=== PATIENT | female | born 1990 | race Caucasian/White ===

== ENCOUNTER 2017-03-14 23:40 | Emergency (ER) | payer SELFPAY ==
[~2017-03-14] VITALS: Ht 160 cm; Wt 57.0 kg
[~2017-03-14 23:40] MED LIST: BUSP5 PO; IBUP800T23 PO; SULF-154 PO; VIST50CA PO
[2017-03-14 23:42] VITALS: BP 177/80; PULSE 117; RESP 18; TEMP 100.3; O2SAT 96
[2017-03-15] MEDS ORDERED: SODIUM CHLOR 0.9% 1000 ML INJ 1,000 ML IV SCH (00:29)
[2017-03-15] MEDS ORDERED: ONDANSETRON HCL 4 MG/2 ML VIAL IVP ONE (00:30)
[2017-03-15] MEDS ORDERED: SODIUM CHLORIDE 0.9% FLUSH 10 ML FLUSH IV FLUSH PRN (00:30)
[2017-03-15 00:52] LABS: AUTOMATED NEUTROPHIL # 3.7 TH/MM3 (1.8-7.7); BASOPHIL % 0.3 % (0.0-2.0); EOSINOPHIL % 0.2 % (0.0-4.0); HEMATOCRIT 39.5 % (35.0-46.0); HEMOGLOBIN 13.5 GM/DL (11.6-15.3); LYMPHOCYTE # 1.3 TH/MM3 (1.0-4.8); MEAN CORPUSCULAR HEMOGLOBIN 29.8 PG (27.0-34.0); MEAN CORPUSCULAR HGB CONC 34.2 % (32.0-36.0); MONO % 8.5 % (0.0-8.0); MONOCYTE # 0.5 TH/MM3 (0-0.9); PLATELET COUNT 126 TH/MM3 (150-450); RED BLOOD COUNT 4.54 MIL/MM3 (4.00-5.30); RED CELL DISTRIBUTION WIDTH 14.3 % (11.6-17.2); WHITE BLOOD COUNT 5.5 TH/MM3 (4.0-11.0)
[2017-03-15 01:05] LABS: ALBUMIN 3.8 GM/DL (3.4-5.0); ALT (GPT) 15 U/L (10-53); AST (GOT) 20 U/L (15-37); BICARBONATE 27.1 MEQ/L (21.0-32.0); BLOOD UREA NITROGEN 9 MG/DL (7-18); CALCIUM 8.6 MG/DL (8.5-10.1); CHLORIDE 100 MEQ/L (98-107); CREATININE 0.68 MG/DL (0.50-1.00); GLOMERULAR FILTRATION RATE 105 ML/MIN (>89); GLUCOSE,RANDOM 101 MG/DL (74-106); LIPASE 75 U/L (73-393); SODIUM (NA) 135 MEQ/L (136-145)
[2017-03-15 01:08] LABS: ALKALINE PHOSPHATASE 97 U/L (45-117); TOTAL BILIRUBIN ADULT 0.4 MG/DL (0.2-1.0); TOTAL PROTEIN 8.2 GM/DL (6.4-8.2)
[2017-03-15 01:29] LABS: BACTERIA, URINE OCC /hpf; BILIRUBIN, URINE NEG (NEG); BLOOD, URINE MOD (NEG); GLUCOSE,URINE NEG (NEG); KETONE, URINE TRACE mg/dL (NEG); MUCUS URINE MANY /lpf (OCC); NITRITE,URINE NEG (NEG); SQUAMOUS EPITHELIAL CELL URINE 9 /hpf (0-5); URINE COLOR YELLOW (YELLW/STRAW); URINE LEUKOCYTE ESTERASE LARGE (NEG)
[2017-03-15] MEDS ORDERED: RESP: ALBUTEROL 2.5 MG/IPRATROPIUM 0.5 MG NEB (SCH) INH ONE (01:30)
--- NOTE | 2017-03-15 01:55 | RADRPT ---
EXAM DATE/TIME: 03/15/2017 01:35 [place] COMPARISON: No previous studies available for comparison. INDICATIONS : Cough with nausea and vomiting x 3 days MEDICAL HISTORY : Asthma SURGICAL HISTORY : Appendectomy. section. ENCOUNTER: Initial ACUITY: 3 days PAIN SCORE: 7/10 LOCATION: Bilateral chest FINDINGS: A single view of the chest demonstrates the lungs to be symmetrically aerated without evidence of mas s, infiltrate or effusion. The cardiomediastinal contours are unremarkable. Osseous structures are intact. CONCLUSION: No acute disease. Steven Cantu MD on March 15, 2017 at 1:51 Board Certified Radiologist. This report was verified electronically.
[2017-03-15] MEDS ORDERED: BACT800T5 PO (02:01)
[2017-03-15] MEDS ORDERED: ALBUAER3 INH (02:01)
[2017-03-15] MEDS ORDERED: ZOFR4TAB3 SL (02:01)
--- NOTE | 2017-03-15 02:01 | PD ---
HPI Chief Complaint: Cold / Flu Symptoms Time Seen by Provider: 01:17 Travel History International Travel<30 days: No Contact w/Intl Traveler<30days: No Traveled to known affect area: No History of Present Illness HPI 26-year-old female patient presents to the ER today for several days of cough, cold symptoms, nausea, fevers and chills, vomiting, and not feeling well. She states that both her daughter and mother has had similar symptoms as well although they have not been evaluated. Modifying Factors: None Associated Signs & Symptoms: Cough, cold symptoms, nausea, fevers, chills, vomiting Risk Factors: Sick contacts PFSH Past Medical History Hx Anticoagulant Therapy: No Asthma: Yes Anxiety: Yes Cardiovascular Problems: No Chemotherapy: No Cerebrovascular Accident: No Diabetes: No Diminished Hearing: No Respiratory: Yes Immunizations Current: Yes Pneumonia: Yes Tetanus Vaccination: > 5 Years Influenza Vaccination: No ?: Not LMP: 03/15/17 Past Surgical History Appendectomy: Yes Section: Yes (X 1) Hysterectomy: No Oral Surgery: Yes Social History Alcohol Use: No Tobacco Use: Yes (02/18 ppd) Substance Use: No Allergies-Medications (Allergen,Severity, Reaction): Coded Allergies: penicillin G (Unverified Allergy, Severe, 03/15/17) ciprofloxacin (Unverified Allergy, Unknown, UNKNOWN, 03/15/17) *MDRO Multi-Drug Resistant Organism (Verified Adverse Reaction, Unknown, ) MRSA finger wound 11/2014 Reported Meds & Prescriptions Reported Meds & Active Scripts Active No Active Prescriptions or Reported Medications Review of Systems Except as stated in HPI: all other systems reviewed are Neg Physical Exam Narrative GENERAL: Well-developed young white female patient currently in mild distress. Awake and oriented 3. SKIN: Focused skin assessment warm/dry. HEAD: Atraumatic. Normocephalic. EYES: Pupils equal and round. No scleral icterus. No injection or drainage. ENT: No nasal bleeding or discharge. Mucous membranes pink and moist. Mild pharyngeal erythema without tonsillar exudates. NECK: Trachea midline. No JVD. Supple. CARDIOVASCULAR: Regular rate and rhythm. No murmur appreciated. RESPIRATORY: No accessory muscle use. Mild intermittent wheezing. Breath sounds equal bilaterally. GASTROINTESTINAL: Abdomen soft, non-tender, nondistended. Hepatic and splenic margins not palpable. MUSCULOSKELETAL: No obvious deformities. No clubbing. No cyanosis. No edema. NEUROLOGICAL: Awake and alert. No obvious cranial nerve deficits. Motor grossly within normal limits. Normal speech. PSYCHIATRIC: Appropriate mood and affect; insight and judgment normal. Data Data Last Documented VS Vital Signs Date Time Temp Pulse Resp B/P (MAP) Pulse Ox O2 Delivery O2 Flow Rate FiO2 03/14/17 23:42 100.3 117 18 177/80 (112) 96 Room Air Orders Orders Complete Blood Count With Diff (03/15/17 00:29) Comprehensive Metabolic Panel (03/15/17 00:29) Lipase (03/15/17:29) Urinalysis - C+S If Indicated (03/15/17:29) Iv Access Insert/Monitor (03/15/17:29) Ecg Monitoring (03/15/17:) Oximetry (03/15/17:29) Ondansetron Inj (Zofran Inj) (03/15/17 00:30) Sodium Chlor 0.9% 1000 Ml Inj (Ns 1000 M (03/15/17 00:29) Sodium Chloride 0.9% Flush (Ns Flush) (03/15/17 00:30) Ed Urine Pregnancytest Poc (03/15/17 00:29) Influenzae A/B Antigen (03/15/17 00:29) Chest, Single Ap (03/15/17 01:17) Albuterol-Ipratropium Neb (Duoneb Neb) (03/15/17 01:30) Urine Culture (03/15/17 01:15) Labs Laboratory Tests Test 03/15/17 00:41 03/15/17 01:15 White Blood Count 5.5 TH/MM3 Red Blood Count 4.54 MIL/MM3 Hemoglobin 13.5 GM/DL Hematocrit 39.5 % Mean Corpuscular Volume 87.0 FL Mean Corpuscular Hemoglobin 29.8 PG Mean Corpuscular Hemoglobin Concent 34.2 % Red Cell Distribution Width 14.3 % Platelet Count 126 TH/MM3 Mean Platelet Volume 8.0 FL Neutrophils (%) (Auto) 67.0 % Lymphocytes (%) (Auto) 24.0 % Monocytes (%) (Auto) 8.5 % Eosinophils (%) (Auto) 0.2 % Basophils (%) (Auto) 0.3 % Neutrophils # (Auto) 3.7 TH/MM3 Lymphocytes # (Auto) 1.3 TH/MM3 Monocytes # (Auto) 0.5 TH/MM3 Eosinophils # (Auto) 0.0 TH/MM3 Basophils # (Auto) 0.0 TH/MM3 CBC Comment DIFF FINAL Differential Comment Blood Urea Nitrogen 9 MG/DL Creatinine 0.68 MG/DL Random Glucose 101 MG/DL Total Protein 8.2 GM/DL Albumin 3.8 GM/DL Calcium Level 8.6 MG/DL Alkaline Phosphatase 97 U/L Aspartate Amino Transf (AST/SGOT) 20 U/L Alanine Aminotransferase (ALT/SGPT) 15 U/L Total Bilirubin 0.4 MG/DL Sodium Level 135 MEQ/L Potassium Level 3.3 MEQ/L Chloride Level 100 MEQ/L Carbon Dioxide Level 27.1 MEQ/L Anion Gap 8 MEQ/L Estimat Glomerular Filtration Rate 105 ML/MIN Lipase 75 U/L Urine Color YELLOW Urine Turbidity HAZY Urine pH 6.0 Urine Specific [place] 1.032 Urine Protein 30 mg/dL Urine Glucose (UA) NEG mg/dL Urine Ketones TRACE mg/dL Urine Occult Blood MOD Urine Nitrite NEG Urine Bilirubin NEG Urine Urobilinogen 4.0 MG/DL Urine Leukocyte Esterase LARGE Urine RBC 7 /hpf Urine WBC 15 /hpf Urine Squamous Epithelial Cells 9 /hpf Urine Bacteria OCC /hpf Urine Mucus MANY /lpf Microscopic Urinalysis Comment CULTURE INDICATED MDM Medical Decision Making Medical Screen Exam Complete: Yes Emergency Medical Condition: Yes Medical Record Reviewed: Yes Differential Diagnosis Viral syndrome versus gastroenteritis versus dehydration versus metabolic issues versus versus pneumonia Narrative Course Patient is wheezing mildly and albuterol was given in the ER. IV fluids and Zofran was given in the ER. Vital signs are stable. Influenza testing is negative. Chest x-ray did not show any signs of acute pulmonary processes. UA does show UTI. Abdomen is fairly benign and I do not suspect an acute intra- abdominal process. At this point, my plan would be to treat her symptomatically and also will treat her with antibiotics for UTI. Follow-up with primary care physician. Return for worsening symptoms as needed. The plan was discussed with her and she states understanding. Diagnosis Primary Impression: Asthma Additional Impressions: UTI (urinary tract infection) Viral syndrome Med/Other Pt SpecificInfo: Prescription(s) given Scripts Ondansetron Odt (Zofran Odt) 4 Mg Tab 4 MG SL Q6HR Y for Nausea/Vomiting, #5 TAB 0 Refills Prov: Kareem Torres MD 03/15/17 Albuterol 8.5 GM Inh (Proair Hfa 8.5 GM Inh) 90 Mcg/Act Aer 2 PUFF INH Q4-6H Y for SHORTNESS OF BREATH, #1 INHALER 0 Refills 108 mcg/actuation Prov: Kareem Torres MD 03/15/17 Sulfamethoxazole-Trimethoprim (Bactrim DS) 800-160 Mg Tab 1 TAB PO BID for Infection, #14 TAB 0 Refills Prov: Kareem Torres MD 03/15/17 Disposition: 01 DISCHARGE HOME Condition: Stable Kareem Torres MD Mar 15, 2017 02:01
[2017-03-15 02:28] VITALS: BP 106/60; PULSE 104; RESP 20; TEMP 99; O2SAT 98
== END 2017-03-15 02:36 | disposition home or self-care (01) ==
LOC: NEPE 23:40
DX: J45.909 Unspecified asthma, uncomplicated (principal); N39.0 Urinary tract infection, site not specified; B34.9 Viral infection, unspecified; F17.200 Nicotine dependence, unspecified, uncomplicated
CPT/HCPCS: 71045; 80053; 81001; 83690; 84703; 85025; 87086; 87804; 94664; 96361; 96374; 99284; J2405; J7030

== ENCOUNTER 2017-07-28 11:24 | Emergency (ER) | payer OTHER ==
[~2017-07-28] VITALS: Ht 167.6 cm; Wt 50.0 kg
[2017-07-28] VITALS (9 sets, daily range): BP systolic 109–190; BP diastolic 62–121; PULSE 77–107; RESP 16–20; TEMP 98.2–98.6; O2SAT 96–100
[~2017-07-28 11:24] MED LIST changes: +ALBUAER3 INH; +BACT800T5 PO; -BUSP5 PO; -IBUP800T23 PO; -SULF-154 PO; -VIST50CA PO; +ZOFR4TAB3 SL
[2017-07-28] MEDS ORDERED: cloNIDine HCL 0.1 MG TAB PO ONE (12:15)
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
[2017-07-28 12:45] LABS: AUTOMATED NEUTROPHIL # 4.4 TH/MM3 (1.8-7.7); BASOPHIL % 0.4 % (0.0-2.0); EOSINOPHIL # 0.1 TH/MM3 (0-0.4); EOSINOPHIL % 0.7 % (0.0-4.0); HEMATOCRIT 34.9 % (35.0-46.0); HEMOGLOBIN 11.5 GM/DL (11.6-15.3); LYMPH % 29.2 % (9.0-44.0); LYMPHOCYTE # 2.1 TH/MM3 (1.0-4.8); MEAN CELL VOLUME 88.1 FL (80.0-100.0); MEAN CORPUSCULAR HGB CONC 32.9 % (32.0-36.0); MEAN PLATELET VOLUME 7.9 FL (7.0-11.0); MONO % 7.6 % (0.0-8.0); MONOCYTE # 0.5 TH/MM3 (0-0.9); NEUT % 62.1 % (16.0-70.0); PLATELET COUNT 190 TH/MM3 (150-450); RED BLOOD COUNT 3.96 MIL/MM3 (4.00-5.30); RED CELL DISTRIBUTION WIDTH 13.7 % (11.6-17.2); WHITE BLOOD COUNT 7.1 TH/MM3 (4.0-11.0)
[2017-07-28 13:27] LABS: ALT (GPT) 15 U/L (10-53); AST (GOT) 16 U/L (15-37); BICARBONATE 24.5 MEQ/L (21.0-32.0); BLOOD UREA NITROGEN 6 MG/DL (7-18); CALCIUM 8.3 MG/DL (8.5-10.1); CHLORIDE 105 MEQ/L (98-107); CREATININE 0.78 MG/DL (0.50-1.00); GLOMERULAR FILTRATION RATE 89 ML/MIN (>89); GLUCOSE,RANDOM 68 MG/DL (74-106); SODIUM (NA) 141 MEQ/L (136-145)
[2017-07-28 13:37] LABS: ALKALINE PHOSPHATASE 82 U/L (45-117); TOTAL BILIRUBIN ADULT 0.2 MG/DL (0.2-1.0); TOTAL PROTEIN 6.7 GM/DL (6.4-8.2)
[2017-07-28 13:40] LABS: ACETAMINOPHEN LESS THAN 2.0 MCG/ML (10.0-30.0)
[2017-07-28] MEDS ORDERED: SODIUM CHLOR 0.9% 1000 ML INJ 1,000 ML IV ONE ×2 (13:45)
[2017-07-28] MEDS ORDERED: POTASSIUM CHLORIDE 10 MEQ CONTROLLED RELEASE TAB PO ONE (15:30)
[2017-07-28 17:48] LABS: BACTERIA, URINE MOD /hpf; BILIRUBIN, URINE NEG (NEG); BLOOD, URINE TRACE (NEG); GLUCOSE,URINE NEG (NEG); HYALINE CAST, URINE 2 /lpf (RARE); KETONE, URINE NEG (NEG); MUCUS URINE FEW /lpf (OCC); NITRITE,URINE NEG (NEG); SQUAMOUS EPITHELIAL CELL URINE 2 /hpf (0-5); URINE COLOR YELLOW (YELLW/STRAW); URINE LEUKOCYTE ESTERASE SMALL (NEG)
[2017-07-28] MEDS ORDERED: cefTRIAXone INJ 1,000 MG in SODIUM CHLORIDE 0.9% INJ 100 ML IV ONE (18:15)
[2017-07-28] MEDS ORDERED: CEPH-460 PO (18:36)
[2017-07-29 05:28] VITALS: BP 141/95; PULSE 76; RESP 16; TEMP 99.2; O2SAT 98
--- NOTE | 2017-07-29 09:44 | PD ---
Physical Exam Date Seen by Provider: Jul 29, 2017 Time Seen by Provider: 09:42 Narrative For full history and physical examination please see previous notes. Data Data Last Documented VS Vital Signs Date Time Temp Pulse Resp B/P (MAP) Pulse Ox O2 Delivery O2 Flow Rate FiO2 07/29/17 05:28 99.2 76 16 141/95 (110) 98 07/28/17 18:00 Room Air Orders Orders Complete Blood Count With Diff (07/28/17 11:29) Comprehensive Metabolic Panel (07/28/17 11:29) Thyroid Stimulating Hormone (07/28/17 11:29) Urinalysis - C+S If Indicated (07/28/17 11:29) Psych Screen (07/28/17 11:29) Drug Screen, Random Urine (07/28/17 11:29) Alcohol (Ethanol) (07/28/17 11:29) Salicylates (Aspirin) (07/28/17 11:29) Tylenol (Acetaminophen) (07/28/17 11:29) Clonidine (Catapres) (07/28/17 12:15) Iv Access Insert/Monitor (07/28/17 12:05) Ecg Monitoring (07/28/17 12:05) Call Poison Control (07/28/17 13:05) Vascular Access Team Consult/P PRN (07/28/17 13:05) Vascular Poc Ultrasound (07/28/17 ) Sodium Chlor 0.9% 1000 Ml Inj (Ns 1000 M (07/28/17 13:45) Sodium Chlor 0.9% 1000 Ml Inj (Ns 1000 M (07/28/17 13:45) Potassium Chloride (Kcl) (07/28/17 15:30) Electrocardiogram (07/28/17 11:54) Urine Culture (07/28/17 17:25) Ceftriaxone Inj (Rocephin Inj) (07/28/17 18:15) Ed Urine Pregnancytest Poc (07/28/17 23:40) Diet Regular Basic (07/29/17 Breakfast) Ed Discharge Order (07/29/17 09:42) Labs Laboratory Tests Test 07/28/17 12:15 07/28/17 17:25 White Blood Count 7.1 TH/MM3 Red Blood Count 3.96 MIL/MM3 Hemoglobin 11.5 GM/DL Hematocrit 34.9 % Mean Corpuscular Volume 88.1 FL Mean Corpuscular Hemoglobin 29.0 PG Mean Corpuscular Hemoglobin Concent 32.9 % Red Cell Distribution Width 13.7 % Platelet Count 190 TH/MM3 Mean Platelet Volume 7.9 FL Neutrophils (%) (Auto) 62.1 % Lymphocytes (%) (Auto) 29.2 % Monocytes (%) (Auto) 7.6 % Eosinophils (%) (Auto) 0.7 % Basophils (%) (Auto) 0.4 % Neutrophils # (Auto) 4.4 TH/MM3 Lymphocytes # (Auto) 2.1 TH/MM3 Monocytes # (Auto) 0.5 TH/MM3 Eosinophils # (Auto) 0.1 TH/MM3 Basophils # (Auto) 0.0 TH/MM3 CBC Comment DIFF FINAL Differential Comment Blood Urea Nitrogen 6 MG/DL Creatinine 0.78 MG/DL Random Glucose 68 MG/DL Total Protein 6.7 GM/DL Albumin 3.0 GM/DL Calcium Level 8.3 MG/DL Alkaline Phosphatase 82 U/L Aspartate Amino Transf (AST/SGOT) 16 U/L Alanine Aminotransferase (ALT/SGPT) 15 U/L Total Bilirubin 0.2 MG/DL Sodium Level 141 MEQ/L Potassium Level 3.1 MEQ/L Chloride Level 105 MEQ/L Carbon Dioxide Level 24.5 MEQ/L Anion Gap 12 MEQ/L Estimat Glomerular Filtration Rate 89 ML/MIN Thyroid Stimulating Hormone 3rd Gen 1.820 uIU/ML Salicylates Level 2.7 MG/DL Acetaminophen Level LESS THAN 2.0 MCG/ML Ethyl Alcohol Level LESS THAN 3 MG/DL Urine Color YELLOW Urine Turbidity HAZY Urine pH 6.0 Urine Specific [place] 1.022 Urine Protein 30 mg/dL Urine Glucose (UA) NEG mg/dL Urine Ketones NEG mg/dL Urine Occult Blood TRACE Urine Nitrite NEG Urine Bilirubin NEG Urine Urobilinogen LESS THAN 2.0 MG/DL Urine Leukocyte Esterase SMALL Urine RBC 1 /hpf Urine WBC 9 /hpf Urine Squamous Epithelial Cells 2 /hpf Urine Bacteria MOD /hpf Urine Hyaline Casts 2 /lpf Urine Mucus FEW /lpf Microscopic Urinalysis Comment CULTURE INDICATED Urine Opiates Screen POS Urine Barbiturates Screen NEG Urine Amphetamines Screen POS Urine Benzodiazepines Screen POS Urine Cocaine Screen POS Urine Cannabinoids Screen POS MDM Medical Record Reviewed: Yes Supervised Visit with KASSANDRA: No Narrative Course Patient is a 27-year-old female presenting to emerge from under [place] act for psychiatric evaluation secondary to making suicidal statements and possible overdose. Patient was seen and evaluated emergency department, she was medically cleared. Patient was seen and evaluated by psychiatry, patient will be discharged to [facility]. Patient's diagnosis is polysubstance abuse. Diagnosis Primary Impression: Urinary tract infection Qualified Codes: N39.0 - Urinary tract infection, site not specified; R31.9 - Hematuria, unspecified Additional Impression: Polysubstance abuse Referrals: [facility] Will be discharged to [facility] today Patient Instructions: General Instructions, Urinary Tract Infection in Women ( [place]) Additional Instruction: Follow-up with [facility] Follow-up with primary doctor Med/Other Pt SpecificInfo: No Change to Meds Scripts Cephalexin (Keflex) 500 Mg Cap 500 MG PO Q12H for Infection for 7 Days, #14 CAP 0 Refills Prov: Mariola Oconnell 07/28/17 Disposition: 65 DISC TO PSYCH CARE FACILITY Condition: Stable Mariola Oconnell Jul 29, 2017 09:44
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
--- NOTE | 2017-07-29 19:08 | EKG ---
Date Performed: 07/28/2017 Time Performed: 11:54:00 PTAGE: 27 years EKG: Sinus rhythm NORMAL ECG NO PREVIOUS TRACING DOCTOR: Delicia Ramirez Interpretating Date/Time 07/29/2017 19:06:32
== END 2017-07-29 10:45 | disposition home or self-care (01) ==
LOC: NEPD 11:24 → NEPJ 07-29 10:45
DX: N39.0 Urinary tract infection, site not specified (principal); R31.9 Hematuria, unspecified; F19.10 Other psychoactive substance abuse, uncomplicated; J45.909 Unspecified asthma, uncomplicated; I10 Essential (primary) hypertension; F41.9 Anxiety disorder, unspecified; F32.9 Major depressive disorder, single episode, unspecified; Z72.0 Tobacco use; Z88.2 Allergy status to sulfonamides; Z88.1 Allergy status to other antibiotic agents; Z88.0 Allergy status to penicillin
CPT/HCPCS: 80053; 80307; 81001; 84443; 84703; 85025; 87086; 93005; 96361; 96374; 99285; J0696; J7030

== ENCOUNTER 2017-12-15 17:13 | Inpatient (IN) ==
[2017-12-15] MEDS ORDERED: Diphtheria/Tetanus/Pertussis Vaccine Inj 0.5 ML Syringe IM ONE (17:26)
[2017-12-15] MEDS ORDERED: Clindamycin 600 mg/NS Premix 600 MG/50 ML PIGGYBACK IV.SIG ONE (17:26)
[2017-12-15] MEDS ORDERED: Sod Chloride 0.9% Inj 1,000 ML IV.CONT SCH (17:30)
[2017-12-15] MEDS ORDERED: fentaNYL Citrate Inj 100 MCG/2 ML Ampul IV.PUSH ONE ×2 (17:31→19:11)
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
[2017-12-15 18:05] LABS: Baso # (Auto) 0.1 th/mm3 (0.0-0.2); Baso % (Auto) 0.8 % (0.0-2.0); Eos % (Auto) 0.3 % (0.0-4.0); Hematocrit 29.1 % (35.0-46.0); Lymph # (Auto) 2.9 th/mm3 (1.0-4.8); Lymph % (Auto) 32.2 % (9.0-44.0); Mean Corpuscular HGB Conc 34.6 % (32.0-36.0); Mean Corpuscular Hemoglobin 30.9 pg (27.0-34.0); Mean Corpuscular Volume 89.5 fL (80.0-100.0); Mono # (Auto) 0.4 th/mm3 (0.0-0.9); Mono % (Auto) 4.6 % (0.0-8.0); Neut # (Auto) 5.5 th/mm3 (1.8-7.7); Neut % (Auto) 62.1 % (16.0-70.0); Platelet Count 220 th/mm3 (150-450); Red Blood Count 3.25 mil/mm3 (4.00-5.30); Red Cell Distribution Width 14.8 % (11.6-17.2); White Blood Count 8.9 th/mm3 (4.0-11.0)
[2017-12-15 18:28] LABS: Activated Partial Thrombo Time 22.1 sec (24.3-30.1); INR 1.1 Ratio; Prothrombin Time 11.4 sec (9.8-11.6)
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
[2017-12-15] MEDS ORDERED: HYDROmorphone PF Inj 1 MG/ML Ampul IV.PUSH ONE (20:30)
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
[2017-12-15 21:33] LABS: Amphetamine Screen,Urine Neg (Neg); Barbiturate Screen,Urine Neg (Neg); Cannabinoid Screen,Urine Neg (Neg); Cocaine Screen,Urine Neg (Neg)
[2017-12-15 21:34] LABS: Bilirubin,Urine Negative (Negative); Clarity,Urine Hazy (Clear); Color,Urine Yellow (Yellw/Straw); Glucose,Urine (UA) Negative (Negative); Leukocyte Esterase,Urine Negative (Negative); Mucus,Urine Few /lpf (Occasional); Nitrite,Urine Negative (Negative); Specific Gravity,Urine 1.039 (1.002-1.035); Squamous Epithelial Cell,Urine 4 /hpf (0-5)
[2017-12-15 21:45] LABS: Opiate Screen,Urine Pos (Neg)
[2017-12-15] MEDS: Docusate Sodium 100 MG Capsule PO SCH (22:15)
[2017-12-15] MEDS: HYDROmorphone PF Inj 1 MG/ML Ampul IV.PUSH PRN (23:18)
[2017-12-15] MEDS ORDERED: HYDROmorphone PF Inj 1 MG/ML Ampul IV.PUSH PRN (23:30)
[2017-12-16] MEDS: HYDROmorphone PF Inj 1 MG/ML Ampul IV.PUSH PRN ×7 (02:15→21:44)
[2017-12-16] MEDS ORDERED: Chlorhexidine Gluconate 2% 1 Pack (2 Cloths) TOPICAL SCH (04:00)
[2017-12-16] MEDS ORDERED: Chlorhexidine Gluconate 2% 1 Pack (2 Cloths) TOPICAL PRN (04:00)
[2017-12-16] MEDS: Clindamycin 600 mg/NS Premix 600 MG/50 ML PIGGYBACK IV.SIG SCH ×3 (05:33→18:44)
[2017-12-16] MEDS ORDERED: Sodium Chloride 0.9% 2 ML Flush PRN IV.FLUSH (05:40)
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
[2017-12-16 07:08] LABS: Baso % (Auto) 0.2 % (0.0-2.0); Eos # (Auto) 0.1 th/mm3 (0.0-0.4); Eos % (Auto) 1.2 % (0.0-4.0); Hematocrit 31.9 % (35.0-46.0); Hemoglobin 10.6 gm/dL (11.6-15.3); Lymph # (Auto) 2.4 th/mm3 (1.0-4.8); Mean Corpuscular HGB Conc 33.1 % (32.0-36.0); Mean Corpuscular Hemoglobin 29.6 pg (27.0-34.0); Mean Corpuscular Volume 89.3 fL (80.0-100.0); Mean Platelet Volume 7.7 fL (7.0-11.0); Mono # (Auto) 0.6 th/mm3 (0.0-0.9); Mono % (Auto) 8.9 % (0.0-8.0); Neut # (Auto) 3.9 th/mm3 (1.8-7.7); Neut % (Auto) 55.7 % (16.0-70.0); Platelet Count 179 th/mm3 (150-450); Red Blood Count 3.57 mil/mm3 (4.00-5.30); Red Cell Distribution Width 14.9 % (11.6-17.2)
[2017-12-16 07:49] LABS: Anion Gap 8 meq/L (5-15); Blood Urea Nitrogen 11 mg/dL (7-18); Calcium 8.4 mg/dL (8.5-10.1); Carbon Dioxide 27.4 meq/L (21.0-32.0); Chloride 108 meq/L (98-107); Glomerular Filtration Rate Greater Than 89 mL/min (>89); Glucose,Random 76 mg/dL (74-106); Potassium 3.7 meq/L (3.5-5.1); Sodium 143 meq/L (136-145)
[2017-12-16] MEDS ORDERED: Post-op Orders (for Pharmacy) OTHER STA (08:38)
--- NOTE | 2017-12-16 08:47 | P.OP ---
- Preoperative Diagnosis (1) Open bimalleolar fracture of right ankle Date of procedure: 12/16/17 Procedure: Irrigation and debridement of open right fibula fracture, open reduction internal fixation right ankle bimalleolar fracture, stress exam of syndesmosis Anesthesia: TORY Surgeon: Kin Pennington MD Munitions Worker: ALEXANDREA Gaspar PA-C The surgical procedure was assisted by my physician butcher's assistant. My P.A. presence was necessary throughout this case for the manipulation and positioning of the surgical extremity. My P.A. was assisting me throughout the duration of this procedure. The skill set of a physician butcher's assistant was medically necessary to complete this procedure. During the surgical case the surgical elastic knitter was working at the back table and the physician butcher's assistant was directly assisting me. Operation and Findings: Implants used : ITS Plan of activity: Nonweightbearing Details of procedure: Patient was seen and evaluated preoperatively and found to have a displaced open left ankle fracture. Informed consent was obtained after a detailed discussion of risk and benefits of surgery. The operative site was marked. Patient was brought to the OR, placed on the OR table, and given IV sedation and general endotracheal anesthesia. IV antibiotics were given preoperatively. A timeout procedure was performed. The operative leg was prepped with alcohol followed by Hibiclens and draped in the usual sterile fashion. Attention was turned towards the distal fibula. A four-inch incision was made over the distal fibula incorporating the open laceration. The subcutaneous tissue was dissected with Bovie. The fracture site was visualized. The fracture site was cleaned with curets. At this point attention was turned towards irrigation and debridement of the open fracture. The fracture was distracted. Curettes were used to debride bone. Overall the wound appeared to be clean. After completion of debridement, the fracture and ankle joint was thoroughly irrigated with 3 L of sterile saline. The fracture was now reduced. The fracture keyed into anatomic alignment. K- wires were used to hold provisional fixation. A plate was selected and contoured to fit the distal fibula. The plate was provisionally held to bone with K-wires. 3.5 cortical screws were used to compress the plate to bone. Multiple screws were placed above and below the fracture. Next attention was turned towards the medial malleolus. She has abrasions just proximal to fracture site. Because of the abrasions, the medial fracture was fixed through limited incisions. Fracture was reduced and keyed into anatomic alignment. K wires were used to hold provisional fixation. A 3.5 cortical lag screw was placed from medial to lateral perpendicular to the fracture site. Good compression was applied. A second 3.5 cortical screw was placed in a retrograde fashion across the fracture site. Fluoroscopy confirmed well aligned fracture with well-placed hardware. Next, attention was turned to the syndesmosis. The syndesmosis was stressed. There was no widening of the syndesmosis with external rotation of the ankle. Incisions were thoroughly irrigated. The subcutaneous tissue was closed with 3- 0 Vicryl and the skin was closed with 3-0 nylon. Sterile dressings were applied. A well molded well-padded splint was applied. The patient was transferred to Recovery in stable condition. Needle and sponge counts were correct.
[2017-12-16] MEDS ORDERED: *HYDROmorphone PF Inj 1 MG/ML Ampul PERIprocedural Use ONLY ONE ×2 (09:06→09:24)
[2017-12-16] MEDS ORDERED: fentaNYL Citrate Inj 100 MCG/2 ML Ampul ONE (09:12)
[2017-12-16] MEDS: Folic Acid 1 MG Tablet PO SCH (10:03)
[2017-12-16] MEDS: Docusate Sodium 100 MG Capsule PO SCH (10:06)
[2017-12-16] MEDS: Sodium Chloride 0.9% 2 ML Flush BID IV.FLUSH SCH ×2 (10:06→20:02)
[2017-12-16] MEDS: Calcium/Vitamin D 250/125 MG Tablet PO SCH ×3 (10:07→17:02)
[2017-12-16] MEDS: Senna/Docusate Sodium 8.6/50 MG Tablet PO SCH ×2 (10:08→20:01)
--- NOTE | 2017-12-16 13:08 | XR ---
EXAM DATE: 12/16/2017 8:45 AM EDT AGE/SEX: 27 years / Female INDICATIONS: ORIF right ankle. CLINICAL DATA: This is the patient's initial encounter. Patient reports that signs and symptoms have been present for 1 day and indicates a pain score of Nonresponsive. MEDICAL/SURGICAL HISTORY: None. None. COMPARISON: [place], FOOT LIMITED RIGHT 2V, 12/15/2017. . FINDINGS: 3 intraoperative films demonstrates the medial malleolus and lateral malleolus fractures have been fi xated. There is now excellent alignment. No visible complication seen CONCLUSION: Status post ORIF of distal tibial fracture Electronically signed by: Spike Neves MD 12/16/2017 1:07 PM EDT
--- NOTE | 2017-12-16 15:13 | P.PNCC ---
Subjective 24 Hour Review/Hospital Course: 12/16 hgb remained stable no abdominal pain c/o pain at the left flank and fx sites was in the OR with ortho for ORIF open fx right bimalleolar GCS 15 on regular diet and tolerating transfer floor in am fu CBC afternoon Objective Vital Signs / I&O: Vital Signs 12/15/17 17:19 12/15/17 17:24 12/15/17 17:36 Temperature 98.2 F Pulse Rate 120 H 113 H Respiratory Rate 24 20 Blood Pressure 119/68 124/73 Pulse Oximetry 100 100 100 12/15/17 17:42 12/15/17 19:11 12/15/17 19:30 Temperature Pulse Rate 104 H 108 H 98 H Respiratory Rate 22 20 Blood Pressure 122/80 127/85 Pulse Oximetry 100 100 12/15/17 20:31 12/15/17 22:23 12/15/17 23:14 Temperature Pulse Rate 99 H 109 H 104 H Respiratory Rate 20 18 20 Blood Pressure 134/79 129/65 130/63 Pulse Oximetry 100 99 99 12/16/17 01:52 12/16/17 01:53 12/16/17 02:00 Temperature 98.5 F Pulse Rate 92 H Respiratory Rate 31 H Blood Pressure 118/74 101/58 L Pulse Oximetry 99 100 12/16/17 02:03 12/16/17 02:31 12/16/17 02:45 Temperature Pulse Rate 94 H 88 80 Respiratory Rate 38 H 15 14 Blood Pressure 101/58 L 106/63 103/59 L Pulse Oximetry 99 99 99 12/16/17 03:00 12/16/17 03:15 12/16/17 03:30 Temperature Pulse Rate 82 78 82 Respiratory Rate 14 14 12 Blood Pressure 97/55 L 101/56 L 104/59 L Pulse Oximetry 99 99 100 12/16/17 03:45 12/16/17 04:00 12/16/17 04:34 Temperature 98.5 F Pulse Rate 76 77 Respiratory Rate 14 14 14 Blood Pressure 95/59 L 95/57 L Pulse Oximetry 100 98 12/16/17 05:00 12/16/17 06:00 12/16/17 08:55 Temperature 98.5 F 97.7 F Pulse Rate 77 77 86 Respiratory Rate 12 14 20 Blood Pressure 109/70 95/57 L 113/80 Pulse Oximetry 99 98 100 12/16/17 09:00 12/16/17 09:15 12/16/17 09:30 Temperature 97.8 F Pulse Rate 113 H 87 100 H Respiratory Rate 25 H 21 20 Blood Pressure 124/79 121/59 L 110/75 Pulse Oximetry 95 97 96 12/16/17 10:33 12/16/17 12:00 12/16/17 13:22 Temperature 98.1 F Pulse Rate 82 Respiratory Rate 15 22 Blood Pressure 116/70 Pulse Oximetry 99 98 Intake & Output 12/15/17 12/16/17 12/16/17 18:59 06:59 18:59 Intake Total 1000 / 1000 1300 / 1300 450 / 450 Output Total 700 / 700 130 / 130 Balance 1000 / 1000 600 / 600 320 / 320 Weight 54.431 kg 57 kg Intake: IV 1000 / 1000 1300 / 1300 50 / 50 LR 1000 mL Inj 1,000 ML @ 100 1000 / 1000 mls/hr IV.CONT .Q10H [facility] Rx#: [id number] NS Inj 1,000 ML @ 1000 mls/hr 1000 / 1000 IV.CONT .Q1H [facility] Rx#:[id number] Ofirmev Inj 1,000 mg In 100 ml 200 / 200 @ 400 mls/hr IV.SIG Q6H [facility] Rx# :[id number] Cleocin 600 mg/NS Premix 600 mg 100 / 100 50 / 50 In 50 ml @ 100 mls/hr IV.SIG Q8H [facility] Rx#:[id number] Oral 0 / 0 Anesthesia Amount 400 / 400 Output: Stool 0 / 0 Estimated Blood Loss 30 / 30 Urine Amount (Catheter) 700 / 700 100 / 100 Indwelling Urethral Catheter 700 / 700 100 / 100 Other: Weight On Admission 57 kg Result Diagrams: 12/16/17 06:40 12/16/17 06:40 Imaging: Impressions Ankle X-Ray 12/15/17 17:26 CONCLUSION: Medial and lateral malleoli fractures with laceration and soft tissue swelling. Chest X-Ray 12/15/17 17:26 CONCLUSION: No active disease. Elbow X-Ray 12/15/17 17:26 CONCLUSION: Mildly displaced avulsion fracture of the medial epicondyle. Foot X-Ray 12/15/17 17:26 CONCLUSION: Mildly displaced fracture of the third metatarsal. Knee X-Ray 12/15/17 17:26 CONCLUSION: Mildly displaced proximal fibular fracture. No joint effusion. Pelvis X-Ray 12/15/17 17:26 CONCLUSION: Negative trauma study. Tibia/Fibula X-Ray 12/15/17 17:26 CONCLUSION: 1. Transverse fractures through the proximal and distal fibula. The tibia is intact. 2. Widening of the ankle mortise. Abdomen/Pelvis CT 12/15/17 17:27 CONCLUSION: 1. Splenic lacerations with trace hemoperitoneum. No active extravasation. No other solid visceral injury identified. Cervical Spine CT 12/15/17 17:27 CONCLUSION: 1. Negative trauma CT. Chest CT 12/15/17 17:27 CONCLUSION: 1. Negative trauma CT Head CT 12/15/17 17:27 CONCLUSION: 1. No acute hemorrhage or mass effect. 2. Small focal area of encephalomalacia involving the left frontal lobe secondary to remote trauma or hemorrhage. . Ankle X-Ray 12/16/17 00:00 CONCLUSION: Status post ORIF of distal tibial fracture Disinhibition Score: 17.50 Aggression Score: 14.00 Lability Score: 14.00 Agitated Behavior Total Score: 16 - Exam PRE ASSEMBLY WIRER: GCS 15,neuro intact Hemodynamic/Cardiac: stable-normocardic Pulmonary/Respiratory: BS clear bl Abdomen/GI Nutrition: soft,benign Hematologic: hgb 10.6 stable Assessment and Plan Plan: monitor HH pain control ,IS Transfer floor in am
[2017-12-16] MEDS: Gentamicin/NS 80 mg Premix 100 ML IV.SIG SCH ×2 (15:46→23:13)
[2017-12-16 16:10] LABS: Hematocrit 29.2 % (35.0-46.0); Hemoglobin 9.6 gm/dL (11.6-15.3)
[2017-12-17] MEDS: HYDROmorphone PF Inj 1 MG/ML Ampul IV.PUSH PRN ×4 (00:40→10:17)
[2017-12-17 02:53] LABS: Baso # (Auto) 0.1 th/mm3 (0.0-0.2); Baso % (Auto) 0.8 % (0.0-2.0); Eos # (Auto) 0.1 th/mm3 (0.0-0.4); Eos % (Auto) 1.3 % (0.0-4.0); Hematocrit 29.2 % (35.0-46.0); Hemoglobin 9.7 gm/dL (11.6-15.3); Lymph # (Auto) 1.7 th/mm3 (1.0-4.8); Lymph % (Auto) 20.2 % (9.0-44.0); Mean Corpuscular HGB Conc 33.3 % (32.0-36.0); Mean Corpuscular Hemoglobin 29.5 pg (27.0-34.0); Mean Corpuscular Volume 88.7 fL (80.0-100.0); Mean Platelet Volume 7.5 fL (7.0-11.0); Mono # (Auto) 0.7 th/mm3 (0.0-0.9); Mono % (Auto) 7.9 % (0.0-8.0); Neut # (Auto) 5.9 th/mm3 (1.8-7.7); Neut % (Auto) 69.8 % (16.0-70.0); Platelet Count 160 th/mm3 (150-450); Red Blood Count 3.29 mil/mm3 (4.00-5.30); Red Cell Distribution Width 14.7 % (11.6-17.2); White Blood Count 8.5 th/mm3 (4.0-11.0)
[2017-12-17 03:08] LABS: Alanine Aminotransferase 53 U/L (10-53); Albumin 2.5 g/dL (3.4-5.0); Anion Gap 7 meq/L (5-15); Aspartate Aminotransferase 53 U/L (15-37); Blood Urea Nitrogen 8 mg/dL (7-18); Calcium 8.3 mg/dL (8.5-10.1); Carbon Dioxide 28.5 meq/L (21.0-32.0); Chloride 105 meq/L (98-107); Glomerular Filtration Rate Greater Than 89 mL/min (>89); Glucose,Random 88 mg/dL (74-106); Potassium 4.2 meq/L (3.5-5.1); Sodium 140 meq/L (136-145)
[2017-12-17 03:10] LABS: Alkaline Phosphatase 85 U/L (45-117)
[2017-12-17] MEDS ORDERED: Chlorhexidine Gluconate 2% 1 Pack (2 Cloths) TOPICAL SCH (04:00)
[2017-12-17] MEDS ORDERED: Chlorhexidine Gluconate 2% 1 Pack (2 Cloths) TOPICAL PRN (04:00)
[2017-12-17] MEDS: Clindamycin 600 mg/NS Premix 600 MG/50 ML PIGGYBACK IV.SIG SCH ×3 (04:16→19:09)
--- NOTE | 2017-12-17 06:25 | P.PNOP ---
Subjective Interval history: POD 1 s/p ORIF right bimalleolar ankle fx s/p right 3rd MT fx s/p left medial epicondyle fx reports pain. otherwise no other complaints. Physical Exam Vital signs: Vital Signs 12/16/17 08:55 12/16/17 09:00 12/16/17 09:15 Temperature 97.7 F Pulse Rate 86 113 H 87 Respiratory Rate 20 25 H 21 Blood Pressure 113/80 124/79 121/59 L Pulse Oximetry 100 95 97 12/16/17 09:30 12/16/17 10:33 12/16/17 12:00 Temperature 97.8 F 98.1 F Pulse Rate 100 H 82 Respiratory Rate 20 15 Blood Pressure 110/75 116/70 Pulse Oximetry 96 99 98 12/16/17 13:22 12/16/17 16:00 12/16/17 20:00 Temperature 98.7 F 98.7 F Pulse Rate 92 H 102 H Respiratory Rate 22 14 24 Blood Pressure 109/61 114/70 Pulse Oximetry 98 96 12/17/17 00:00 12/17/17 00:47 12/17/17 01:09 Temperature 98.8 F 100 F H Pulse Rate 96 H 101 H Respiratory Rate 19 14 18 Blood Pressure 129/79 112/65 Pulse Oximetry 95 95 12/17/17 03:20 Temperature 99.4 F Pulse Rate 100 H Respiratory Rate 17 Blood Pressure 115/85 Pulse Oximetry 96 Intake & Output 12/16/17 12/16/17 12/17/17 06:59 18:59 06:59 Intake Total 1300 / 1300 2850 / 2850 390 / 390 Output Total 700 / 700 1560 / 1560 1999 / 1999 Balance 600 / 600 1290 / 1290 -1610 / -1610 Weight 57 kg 54.3 kg Intake: IV 1300 / 1300 1250 / 1250 150 / 150 LR 1000 mL Inj 1,000 ML @ 100 1000 / 1000 1000 / 1000 mls/hr IV.CONT .Q10H [facility] Rx#: [id number] Ofirmev Inj 1,000 mg In 100 ml 200 / 200 100 / 100 @ 400 mls/hr IV.SIG Q6H [facility] Rx# :[id number] Cleocin 600 mg/NS Premix 600 mg 100 / 100 50 / 50 50 / 50 In 50 ml @ 100 mls/hr IV.SIG Q8H [facility] Rx#:[id number] Gentamicin/NS 80 mg Premix 100 100 / 100 100 / 100 ML @ 200 mls/hr IV.SIG Q8H [facility]A Rx#:[id number] Oral 0 / 0 800 / 800 240 / 240 Anesthesia Amount 800 / 800 Output: Urine 1400 / 1400 600 / 600 Stool 0 / 0 Estimated Blood Loss 60 / 60 Urine Amount (Catheter) 700 / 700 100 / 100 1400 / 1400 Indwelling Urethral Catheter 700 / 700 100 / 100 1400 / 1400 Other: Date of Last Bowel Movement 01/14/18 # Bowel Movements 0 Weight On Admission 57 kg Narrative: RLE: +short leg splint. intact. NVI LUE: +long arm splint. intact. NVI - Urinary Catheter Management Indwelling Urethral Catheter Cath placed during this visit: yes Reason for continuing: Hourly intake/output Insertion date: 12/16/17 Insertion time: 20:59 Results - Labs CBC & Chem 7: 12/17/17 02:44 12/17/17 02:44 Laboratory Results - last 24 hr 12/16/17 12/16/17 12/16/17 02:33 06:40 06:40 WBC 7.0 RBC 3.57 L Hgb 10.6 L Hct 31.9 L MCV 89.3 MCH 29.6 MCHC 33.1 RDW 14.9 Plt Count 179 MPV 7.7 Neut % (Auto) 55.7 Lymph % (Auto) 34.0 [place] % (Auto) 8.9 H Eos % (Auto) 1.2 Baso % (Auto) 0.2 Neut # (Auto) 3.9 Lymph # (Auto) 2.4 [place] # (Auto) 0.6 Eos # (Auto) 0.1 Baso # (Auto) 0.0 WBC Differential . Differential Comment Auto diff final Sodium 143 Potassium 3.7 Chloride 108 H Carbon Dioxide 27.4 Anion Gap 8 BUN 11 Creatinine 0.71 Estimated GFR Greater than 89 Random Glucose 76 Calcium 8.4 L Total Bilirubin AST ALT Alkaline Phosphatase Total Protein Albumin Nasal Screen MRSA (PCR) Mrsa detected 12/16/17 12/17/17 12/17/17 15:49 02:44 02:44 WBC 8.5 RBC 3.29 L Hgb 9.6 L 9.7 L Hct 29.2 L 29.2 L MCV 88.7 MCH 29.5 MCHC 33.3 RDW 14.7 Plt Count 160 MPV 7.5 Neut % (Auto) 69.8 Lymph % (Auto) 20.2 [place] % (Auto) 7.9 Eos % (Auto) 1.3 Baso % (Auto) 0.8 Neut # (Auto) 5.9 Lymph # (Auto) 1.7 [place] # (Auto) 0.7 Eos # (Auto) 0.1 Baso # (Auto) 0.1 WBC Differential . Differential Comment Auto diff final Sodium 140 Potassium 4.2 Chloride 105 Carbon Dioxide 28.5 Anion Gap 7 BUN 8 Creatinine 0.66 Estimated GFR Greater than 89 Random Glucose 88 Calcium 8.3 L Total Bilirubin 0.2 AST 53 H ALT 53 Alkaline Phosphatase 85 Total Protein 6.0 L Albumin 2.5 L Nasal Screen MRSA (PCR) - Imaging Impressions Ankle X-Ray 12/16/17 00:00 CONCLUSION: Status post ORIF of distal tibial fracture Assessment and Plan - Assessment and Plan 1) Right 3rd MT Fx - nonop 2) Left Medial epicondyle fx - nonop 3) Right Open Bimalleolar Ankle fx s/p ORIF - POD 1 -NWB to RLE/LUE -maintain splints at all times -pain control; informed patient that pain control will be difficult with her history of substance abuse -CM for DC planning -f/u with [facility] or [place] in 2 weeks [employer] Prescription Drug Monitoring Database has been queried and verified prior to prescribing the controlled substance. Acute pain exception. This patient has normal, predicted, physiological, and time limited response to an adverse mechanical stimulus associated with surgery, trauma, or acute illness as described in my notes. There is a lack of alternative treatment options other than to include the prescribed narcotic treatment for this condition.
[2017-12-17] MEDS: Gabapentin 300 MG Capsule PO SCH ×3 (09:00→19:10)
[2017-12-17] MEDS: Famotidine 20 MG Tablet PO SCH ×2 (09:00→21:34)
[2017-12-17] MEDS: Folic Acid 1 MG Tablet PO SCH (09:01)
[2017-12-17] MEDS: Calcium/Vitamin D 250/125 MG Tablet PO SCH ×3 (09:01→19:10)
[2017-12-17] MEDS: Senna/Docusate Sodium 8.6/50 MG Tablet PO SCH ×2 (09:01→21:34)
[2017-12-17] MEDS: Mupirocin 2% Nasal Oint Topical Syringe EACH NARE SCH ×2 (09:07→21:34)
[2017-12-17] MEDS: Gentamicin/NS 80 mg Premix 100 ML IV.SIG SCH ×3 (09:08→23:59)
[2017-12-17] MEDS: Lidocaine 5% Patch T-DERMAL SCH (12:38)
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
[2017-12-17] MEDS: Enoxaparin Inj 40 MG/0.4 ML Syringe SQ SCH (16:01)
[2017-12-17] MEDS ORDERED: Acetaminophen 325 MG Tablet PO PRN (21:26)
[2017-12-18 04:25] LABS: Hematocrit 33.4 % (35.0-46.0)
[2017-12-18] MEDS: Gentamicin/NS 80 mg Premix 100 ML IV.SIG SCH (07:41)
[2017-12-18] MEDS: Famotidine 20 MG Tablet PO SCH ×2 (09:00→20:16)
[2017-12-18] MEDS: Gabapentin 300 MG Capsule PO SCH ×3 (09:00→17:04)
[2017-12-18] MEDS: Calcium/Vitamin D 250/125 MG Tablet PO SCH ×3 (09:00→17:04)
[2017-12-18] MEDS: Mupirocin 2% Nasal Oint Topical Syringe EACH NARE SCH ×2 (09:00→20:16)
[2017-12-18] MEDS: Folic Acid 1 MG Tablet PO SCH (09:00)
[2017-12-18] MEDS: Senna/Docusate Sodium 8.6/50 MG Tablet PO SCH ×2 (09:00→20:16)
[2017-12-18] MEDS: Lidocaine 5% Patch T-DERMAL SCH (09:00)
[2017-12-18] MEDS: Enoxaparin Inj 40 MG/0.4 ML Syringe SQ SCH (09:00)
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
[2017-12-18] MEDS ORDERED: Metoprolol Tartrate 25 MG Tablet PO ONE (16:15)
[2017-12-19] MEDS: Enoxaparin Inj 40 MG/0.4 ML Syringe SQ SCH (08:25)
[2017-12-19] MEDS: Famotidine 20 MG Tablet PO SCH (08:25)
[2017-12-19] MEDS: Gabapentin 300 MG Capsule PO SCH ×2 (08:26→12:11)
[2017-12-19] MEDS: Calcium/Vitamin D 250/125 MG Tablet PO SCH ×2 (08:26→12:11)
[2017-12-19] MEDS: Folic Acid 1 MG Tablet PO SCH (08:26)
[2017-12-19] MEDS: Senna/Docusate Sodium 8.6/50 MG Tablet PO SCH (08:26)
[2017-12-19] MEDS: Mupirocin 2% Nasal Oint Topical Syringe EACH NARE SCH (08:26)
[2017-12-19] MEDS: Lidocaine 5% Patch T-DERMAL SCH (08:26)
[2017-12-19] MEDS ORDERED: Metoprolol Tartrate 25 MG Tablet PO SCH (09:00)
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
== END 2017-12-19 14:57 | disposition home or self-care (01) ==
LOC: NEPC 17:13 → NEDA 19:09 → N03 12-16 01:47 → N06 12-17 03:20
PROVIDERS: ADMIT Surgery Trauma Surgery; ATTEND Surgery Trauma Surgery
PROC: ORIFANK (2017-12-16 07:41)